=== PATIENT | female | born 1960 | race Caucasian/White ===

== ENCOUNTER → 2017-01-13 | Day surgery (SDC) | payer OTHER ==
[~2017-01-13] MED LIST: ACETAMINOPHEN 1000 MG/100 ML VIAL IV ONE; BALANCED SALT SOLN OPHT IRRIG 15 ML BTL ONE; LACTATED RINGER'S 1,000 ML BAG IV ONE; LACTATED RINGER'S 1000 ML INJ 1,000 ML ONE; LIDOCAINE 1%/EPINEPHrine 1:100,000 SOLN 20 ML VIAL ONE; LIDOCAINE 2%/EPINEPHrine PF 1:200,000 20ML SDV ONE; MEPERIDINE HCL 25 MG/ML VIAL ONE; MEPERIDINE HCL 50 MG/ML VIAL ONE; MIDAZOLAM HCL 2 MG/2 ML VIAL ONE; NEOMYCIN/POLYMYXIN/BACITRACIN OINT 15 GM TUBE ONE; NEOMYCIN/POLYMYXIN/HYDROCORT OTIC SUSP 10 ML BTL ONE; ONDANSETRON HCL 4 MG/2 ML VIAL IV PUSH ONE; ONDANSETRON HCL 4 MG/2 ML VIAL ONE; PROPOFOL 200 MG/20 ML AMP IV ONE; ceFAZolin INJ 1,000 MG VIAL ONE
--- NOTE | 2017-01-13 14:39 | TN ---
cc: CARLOS SAUNDERS M.D. DATE OF SURGERY 01/13/2017 PREOPERATIVE DIAGNOSIS Facial aging POSTOPERATIVE DIAGNOSIS Facial aging PROCEDURE Upper blepharoplasty and cervicofacial rhytidectomy including the implantation of fat injections SURGEON Carlos Saunders MD ANESTHESIA LMA general ESTIMATED BLOOD LOSS Minimal COMPLICATIONS None PROCEDURE She was properly consented and marked in an upward position in the holding area and was taken to the operating room where after achieving a level of LMA anesthesia, a total of 160 cc diluted lidocaine was tumescent into the mid-lower face and neck, as well as the lower abdomen. I utilized 2% lidocaine, a total of 20 cc on the upper eyelids and the incision sites. With this, after proper draping of the face and neck including the abdomen and after sterilizing the area with Microsyn, attention was directed to the upper eyelids. Excess skin was properly marked in the usual fashion. Exploration of the inner fat pockets were done and removed a minimal amount. After doing so, I proceeded to perform and close the wounds in multiple layers of 6-0 Monocryl suture and a running 6-0 Prolene secured with Steri-Strips. Attention was directed to the submental area through which a 4-1/2 to 5 cm submental incision, I dissected the neck all the way down to its base anteriorly and defat the pre-platysma and retro-platysma fascia. I also plicated the muscles in the usual fashion anteriorly in order to accentuate the neck, the cervicomental angle. With this, I proceeded and performed a myotomy at the most anterior inferior aspect of the plication in order to accentuate the . From here, I proceeded through a pre and postauricular incision to elevate the skin by connecting to the anterior neck dissection close to the anterior nasolabial fold and to around the malar bone. After achieving that, a plication was done of the SMAS utilizing a running 4-0 Mersilene suture and a lateral platysma plasty was done as well. The contralateral side was approached in exactly the same manner. From here, I went on and did some fat augmentations of the chin area that was quite . I put a total of 20 cc there. The cheek areas receive about 5 cc each for a grand total of 30 cc of fat. I proceeded and applied an and with this and a drainless closure was done utilizing in the postauricular area 3-0 Monocryl sutures, surgical christina and on the preauricular 5-0 Monocryl suture and 5-0 Monocryl fast-absorbing gut. The submental incision was closed with 3-0 Monocryl suture and 5-0 fast-absorbing gut as well. Compression dressings were applied after that. Good viability of tissue was noted at the end of the case. The patient was awakened and extubated in the operating room. The patient tolerated the procedure well. MD RODOLFO Mallory/EVELIO /12:59 PM /2:31 PM
== END | disposition home or self-care (01) ==
LOC: ESDC 06:26
PROVIDERS: ATTEND Plastic Surgery
DX: Z41.1 Encounter for cosmetic surgery (principal)
CPT/HCPCS: 00103; 00300; 11954; 15822; 15828; J0131; J0690; J2175; J2250; J2405; J3010; J7120